=== PATIENT | female | born 1990 | race Caucasian/White ===

== ENCOUNTER → 2019-06-22 13:12 | Outpatient (BNVA) | payer MEDICAID, SELFPAY | PROVIDERS: Visit Provider Obstetrics & Gynecology | DX: Z34.90 Encounter for supervision of normal pregnancy, unspecified, unspecified trimester (principal) | CPT/HCPCS: 81025 ==

== ENCOUNTER 2019-09-15 08:20 | Inpatient (IN) | payer MEDICAID, SELFPAY ==
[2019-09-15] VITALS (31 sets, daily range): BP systolic 105–140; BP diastolic 62–94; PULSE 73–107; RESP 18; TEMP 36.7–36.9; BMI 21.5
--- NOTE | 2019-09-15 08:59 | P.HP_ITS ---
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 Upon presentation she said that she was 35 weeks along. She said she had an initial evaluation that determined her due date, but otherwise she has not had any care during her . She states that she has not had any problems during her . She is unsure if or when her water broke. She has a long history of drug abuse. She told me that she used meth last Saturday. She said that the last time that she had used it prior to that was in March 2018. Of note, when she spoke with Anne Zarate in June she said that the last time she had used meth was 2016 Review of Systems General: Reports: 10 or more systems reviewed and unremarkable except in HPI and below Const: Reports: fatigue; Denies: fever(s) Eyes: Denies: change in vision Card: Denies: chest pain Musc: Reports: back pain Prudencio/Lymph: Denies: easy bruising Medications/Allergies Home Medications Medication Instructions Recorded Confirmed Last Taken Type ibuprofen 800 mg PO TID #30 tab 09/15/19 Unknown Rx prenat.vits,annemarie,[id number] 1 tab PO DAILY #90 tab 09/15/19 06/25/19 09/11/19 20:00 Rx Allergies Allergy/AdvReac Type Severity Reaction Status Date / Time No Known Allergies Allergy Verified 06/25/19 14:26 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 PFSH: Medical History (Updated 09/16/19 @ 00:00 by ) H/O anxiety disorder H/O developmental dysplasia of the hip H/O: substance abuse (2019) 2019 on 09/12/19-- meth Migraine aura without headache Surgical History H/O section (~2011) H/O dilation and curettage (~2006) Family History Grandmother Diabetes Paternal grandmother Maternal grandmother Stroke Maternal grandmother Breast cancer, Onset Age: 55 Maternal grandmother Denies family history of Colon cancer Ovarian cancer Hyperlipidemia Family history of thyroid problem Hypertension Uterine cancer Social History (Updated 09/15/19 @ 09:05 by Enrique Lozoya MD) Smoking and tobacco status: current every day smoker Quit status (tobacco): has quit using tobacco Year quit tobacco: April 2019 Alcohol intake: never Substance/Drug Use: current Substance/Drug use type: Methamphetamine Other substance/drug use details: Last use on Saturday. History of use is not consistent. Marital status: Other Female Reproductive History: Hx Age of Menarche: 13 History History History 4 Term 1 Miscarriages/Ectopic 1 1 Living Children 2 Other History: The patient had an initial visit with women[facility] care clinic, otherwise she has had no care. No labs have been done. She has not seen another provider in any location. Care SABINA Calculator Estimated Delivery Date Method Current WG Current Estimate 11/15/19 LMP (Certain) 32w 1d Specific Issues/Plans * LATE TO CARE * HX OF PTL WITH PTD AT 33 WEEKS * Previous C/S * HX OF HEP C EXPOSURE * HX OF DRUG USE * TOBACCO USE-- stopped at 10 weeks Physical Exam Const: COMMON NORMALS: no acute distress and patient oriented x3 GENERAL APPEARANCE: cooperative, comfortable and well developed HENMT: COMMON NORMALS: normocephalic and moist oral mucous membranes; dentition not normal (Poor dentition noted throughout) HEAD & SCALP: no rmocephalic TEETH & GINGIVA: Yes poor dentition (Almost all teeth with cavities. Most teeth are gone) Chest: COMMONS NORMALS: normal inspection of the chest Resp: COMMON NORMALS: normal respiratory effort and clear to auscultation bilaterally AUSCULTATION: clear to auscultation bilaterally Cardio: COMMON NORMALS: regular rate, regular rhythm, No gallops present (Cardio), No murmurs present (Cardio) and No rub (Cardio) RATE: regular rate RHYTHM: regular rhythm Extremity: COMMON NORMALS: normal to inspection Neuro: COMMON NORMALS: patient oriented x3 and no focal motor deficits Skin: COMMON NORMALS: no rashes or lesions noted GENERAL SKIN EXAM: no rashes or lesions noted Data : 09/15/19 08:50 09/15/19 08:50 A&P Assessment and plan (1) Late care affecting : The patient is going to require assistance on an outpatient basis for rehab. I have talked with her and discussed with her the importance of over coming her drug addiction so that she can be a mother to her children. Status: Resolved Qualifiers: Trimester: second trimester Qualified Code(s): O09.32 - Supervision of with insufficient care, second trimester (2) Exposure to hepatitis C: Status: Acute (3) Tobacco use during : Status: Resolved Qualifiers: Trimester: first trimester Qualified Code(s): O99.331 - Smoking (tobacco) complicating , first trimester (4) Methamphetamine abuse: Status: Acute (5) Drug use affecting : Status: Resolved (6) 32 weeks gestation of : Status: Resolved (7) Spontaneous vaginal delivery: Status: Resolved Attestations Medical Necessity Statement*: The mother was discharged shortly after her child was transferred. I discussed the risks of an early discharge the patient. She accepted those risks and wishes to go regardless. 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
--- NOTE | 2019-09-15 09:11 | PM.DELIVERY ---
Delivery Note: Date of delivery: September 15, 2019 Pre-Delivery Course: The patient went into labor and was on her way to the hospital when she delivered about 2 miles from the hospital. EMS assisted in the clamping and cutting of the cord. The mother and baby were then brought to the hospital for definitive treatment. I was contacted on the phone after the patient had arrived. Delivery: After being contacted regarding the patient, I quickly came to the hospital then assisted with delivery of the placenta which was delivered intact. There was no lacerations noted on the perineum or vagina. The baby was 4 pounds 1 ounce and had an of 7 at about 30 minutes post delivery. No nuchal cord was reported. No meconium was reported. A&P Assessment and plan (1) Late care affecting : Status: Resolved Qualifiers: Trimester: second trimester Qualified Code(s): O09.32 - Supervision of with insufficient care, second trimester (2) Exposure to hepatitis C: Status: Acute (3) Tobacco use during : Status: Resolved Qualifiers: Trimester: first trimester Qualified Code(s): O99.331 - Smoking (tobacco) complicating , first trimester (4) Methamphetamine abuse: Status: Acute (5) Drug use affecting : Status: Resolved (6) 32 weeks gestation of : Status: Resolved (7) Spontaneous vaginal delivery: Status: Resolved Coding Level of Care Code Acute Cook Italian Style Food for Chg Fwd Diagnoses Late care affecting O09.32 Trimester: second trimester Exposure to hepatitis C Z20.5 Tobacco use during O99.331 Trimester: first trimester Methamphetamine abuse F15.10 Drug use affecting O99.320 32 weeks gestation of Z3A.32 Spontaneous vaginal delivery O80
--- NOTE | 2019-09-15 09:46 | PC.NURSE ---
PT HAD IV UPON ARRIVAL TO OB.
[2019-09-15 09:47] LABS: Rubella IgG 96.6 IU/mL (0.0-9.0)
[2019-09-15 09:48] LABS: Rapid Plasma Reagin Syphilis Nonreactive (Nonreactive)
[2019-09-15 10:12] LABS: Basophils % 0.3 %; Eosinophils # 0.1 10^3/uL (0.0-0.8); Eosinophils % 0.5 %; Hematocrit 33.6 % (37.0-47.0); Hemoglobin 10.6 g/dL (11.5-15.3); Lymphocytes # 2.1 10^3/uL (0.8-4.8); Lymphocytes % 14.3 %; Mean Corpuscular HGB Conc 31.5 g/dL (30.0-36.0); Mean Corpuscular Hemoglobin 28.2 pg (28.0-34.0); Mean Corpuscular Volume 89.4 fL (81-99); Mean Platelet Volume 13.6 fL (7.4-10.4); Monocytes # 0.9 10^3/uL (0.2-0.9); Monocytes % 5.8 %; Neutrophils # 11.7 10^3/uL (1.8-7.7); Neutrophils % 78.3 %; Nucleated Red Blood Cells % 0 %; Platelet Count 224 10^3/cmm (130-400); Red Blood Count 3.76 10^6/uL (4.1-5.3); Red Cell Distribution Width 12.8 % (12.1-15.1)
[2019-09-15 10:21] LABS: Amphetamines Screen Urine Positive (Negative); Barbiturates Screen Urine Negative (Negative); Benzodiazepines Screen Urine Negative (Negative); Cocaine Screen Urine Negative (Negative); Hepatitis B Surface Antigen Non-Reactive (Nonreactive); Opiate Screen Urine Negative (Negative); PCP Screen Urine Negative (Negative); THC Screen Urine Negative (Negative)
[2019-09-15 10:33] LABS: Alanine Aminotransferase 13 U/L (0-33); Albumin Level 3.3 g/dL (3.5-5.2); Alkaline Phosphatase 152 IU/L (35-105); Anion Gap 18.9 (5-19); Aspartate Amino Transferase 19 U/L (0-32); Blood Urea Nitrogen 6 mg/dL (6-20); Calcium 8.9 mg/dL (8.5-10.5); Carbon Dioxide 19 mmol/L (22-29); Chloride 101 mmol/L (98-107); Globulin 3.1 g/dL (1.3-4.6); Glomerular Filtration Rate 188.7 mL/min (90-130); Glucose 95 mg/dL (65-115); Osmolality Calculated 276 mOsm/kg (285-295); Potassium 3.9 mmol/L (3.5-5.1); Sodium 135 mmol/L (136-145); Total Bilirubin 0.2 mg/dL (0.15-1.2); Total Protein 6.4 g/dL (6.6-8.7)
[2019-09-15 10:46] LABS: C Reactive Protein 3.7 mg/L (0.0-4.9); HIV 1 & 2 Antibody Non-Reactive (Non-Reactiv); HIV 1 & 2 Antigen Non-Reactive (Non-Reactiv)
[2019-09-15] MEDS: prenatal vitamin Capsule 1 CAP PO (11:10)
[2019-09-15] MEDS: docusate sodium 100 mg Capsule PO (11:10)
[2019-09-15] MEDS: oxytocin 30 UNIT/500 ML BAG 600 UNIT IV (11:14)
[2019-09-15 12:04] LABS: Hepatitis C Virus Antibody Reactive (Nonreactive)
--- NOTE | 2019-09-15 12:16 | PC.NURSE ---
Patient loaded up into the transport team's isolette.
--- NOTE | 2019-09-15 13:54 | PM.OBGYDC ---
Discharge Providers EDUCATIONAL PSYCHOLOGIST Date of Admission: 09/15/19 08:20 Date of Discharge: 09/21/19 Attending Provider at Admission: Enrique Lozoya MD Attending Provider at Discharge: Enrique Lozoya MD Diagnoses at Discharge Discharge Diagnosis (1) Late care affecting : Status: Resolved Qualifiers: Trimester: second trimester Qualified Code(s): O09.32 - Supervision of with insufficient care, second trimester (2) Exposure to hepatitis C: Status: Acute (3) Tobacco use during : Status: Resolved Qualifiers: Trimester: first trimester Qualified Code(s): O99.331 - Smoking (tobacco) complicating , first trimester (4) Methamphetamine abuse: Status: Acute (5) Drug use affecting : Status: Resolved (6) 32 weeks gestation of : Status: Resolved (7) Spontaneous vaginal delivery: Status: Resolved Reason for Visit Reason for Visit: Delivery Hospital Course Hospital Course: The patient is a multigravida female at 32 weeks who presented to the hospital after delivering her baby in route to the hospital. She had received almost no care. After arrival at the hospital. The delivery of the placenta was unremarkable. And her course was also unremarkable. DFS was contacted due to her drug abuse and her lack of care. Her baby was transferred due to its early gestational age. The mother was very anxious to also leave the hospital so that she could see her baby, so she was discharged shortly after her baby was transferred. Information Peripartum Data: Delivery Method: Vaginal Physical Exam Narrative: EXAM NARRATIVE: The patient is alert. She appears comfortable. Her heart has a regular rate and rhythm with no murmurs appreciated. Lungs are clear to auscultation bilaterally. Her fundus is firm and below the umbilicus. Discharge Data Data Completed and Pending: Pending at discharge Category Date Time Status Blood Culture Sta t Lab 09/15/19 09:52 Ordered Chlamydia Trachom atis BAO Stat Lab 09/15/19 08:50 Received Lactic Sepsis W/R eflex Stat Lab 09/15/19 09:52 Ordered Neisseria Gonorrh oeae BAO Stat Lab 09/15/19 08:50 Received [facility] SARS-CoV-2 RNA Routine Lab 09/15/19 09:50 Ordered Retype for Patiet s ABO/Rh Routine Lab 09/15/19 10:46 Ordered Labs from last 24 hours 09/15/19 09/15/19 09/15/19 08:50 08:50 08:50 WBC 15.0 H Corrected WBC RBC 3.76 L Hgb 10.6 L Hct 33.6 L MCV 89.4 MCH 28.2 MCHC 31.5 RDW 12.8 Plt Count 224 MPV 13.6 H Neut % (Auto) 78.3 Lymph % (Auto) 14.3 [place] % (Auto) 5.8 Eos % (Auto) 0.5 Baso % (Auto) 0.3 Neut # (Auto) 11.7 H Lymph # (Auto) 2.1 [place] # (Auto) 0.9 Eos # (Auto) 0.1 Baso # (Auto) 0.0 Nucleated RBC % (a uto) 0 Nucleated RBCs # 0.0 Sodium 135 L Potassium 3.9 Chloride 101 Carbon Dioxide 19 L Anion Gap 18.9 BUN 6 Creatinine 0.4 L GFR Calculation 188.7 H Glucose 95 Calculated Osmolal ity 276 L Calcium 8.9 Total Bilirubin 0.2 AST 19 ALT 13 Alkaline Phosphata se 152 H C-Reactive Protein 3.7 Total Protein 6.4 L Albumin 3.3 L Globulin 3.1 Urine Opiates Scre en Negative Ur Barbiturates Sc reen Negative Ur Phencyclidine S crn Negative Ur Amphetamines Sc reen Positive H U Benzodiazepines Scrn Negative Urine Cocaine Scre en Negative U Marijuana (THC) Screen Negative RPR Hep Bs Antigen Hepatitis C Antibo dy HIV 1&2 Ab & HIV 1 Ag HIV 1&2 Antibody Rubella IgG Antibo dy Blood Type Rho(D) Type Antibody Screen 09/15/19 09/15/19 09/15/19 08:50 08:50 08:50 WBC Cancelled Corrected WBC Cancelled RBC Cancelled Hgb Cancelled Hct Cancelled MCV Cancelled MCH Cancelled MCHC Cancelled RDW Cancelled Plt Count Cancelled MPV Cancelled Neut % (Auto) Lymph % (Auto) [place] % (Auto) Eos % (Auto) Baso % (Auto) Neut # (Auto) Lymph # (Auto) [place] # (Auto) Eos # (Auto) Baso # (Auto) Nucleated RBC % (a uto) Nucleated RBCs # Sodium Potassium Chloride Carbon Dioxide Anion Gap BUN Creatinine GFR Calculation Glucose Calculated Osmolal ity Calcium Total Bilirubin AST ALT Alkaline Phosphata se C-Reactive Protein Total Protein Albumin Globulin Urine Opiates Scre en Ur Barbiturates Sc reen Ur Phencyclidine S crn Ur Amphetamines Sc reen U Benzodiazepines Scrn Urine Cocaine Scre en U Marijuana (THC) Screen RPR Nonreactive Hep Bs Antigen Hepatitis C Antibo dy HIV 1&2 Ab & HIV 1 Ag HIV 1&2 Antibody Rubella IgG Antibo dy 96.6 H Blood Type B Positive Rho(D) Type Positive Antibody Screen Negative 09/15/19 09/15/19 09/15/19 08:50 08:50 08:50 WBC Corrected WBC RBC Hgb Hct MCV MCH MCHC RDW Plt Count MPV Neut % (Auto) Lymph % (Auto) [place] % (Auto) Eos % (Auto) Baso % (Auto) Neut # (Auto) Lymph # (Auto) [place] # (Auto) Eos # (Auto) Baso # (Auto) Nucleated RBC % (a uto) Nucleated RBCs # Sodium Potassium Chloride Carbon Dioxide Anion Gap BUN Creatinine GFR Calculation Glucose Calculated Osmolal ity Calcium Total Bilirubin AST ALT Alkaline Phosphata se C-Reactive Protein Total Protein Albumin Globulin Urine Opiates Scre en Ur Barbiturates Sc reen Ur Phencyclidine S crn Ur Amphetamines Sc reen U Benzodiazepines Scrn Urine Cocaine Scre en U Marijuana (THC) Screen RPR Hep Bs Antigen Non-reactive Hepatitis C Antibo dy Reactive H HIV 1&2 Ab & HIV 1 Ag Non-reactive HIV 1&2 Antibody Non-reactive Rubella IgG Antibo dy Blood Type Rho(D) Type Antibody Screen Vitals: Last Vital Signs Temp 98.4 F 09/15/19 08:52 Pulse 91 09/15/19 13:43 BP 119/78 09/15/19 13:43 Discharge Plan Discharge Patient Disposition: Home, Self-Care Condition: Stable Prescriptions: New ibuprofen 800 mg Tablet 800 mg PO TID Qty: 30 RF: 0 Continued prenat.vits,annemarie,[id number] Tablet 1 tab PO DAILY Qty: 90 RF: 2 Discharge Orders: Discharge Order (Routine); Ordered 09/15/19 Ordered By: Enrique Lozoya Referrals: Enrique Lozoya MD [Physician] - 09/22/19 8:15 am (* Your 1 week check up is with Dr. Lozoya on 09/22/2019 at 8:15am. ) Discharge Diet: Usual diet Discharge Activity: Limit activity as instructed Patient Instructions: Ibuprofen (By mouth), Perineal Care (DC), Your Baby (DC), Expression, Collection and Storage of Breastmilk (DC), How to Hold and Breastfeed Your Baby (DC), and Nipple Soreness (DC), Breast Fullness Versus Breast Engorgement (DC), and Plugged Ducts (DC), How to Tell if Your Baby is Getting Enough Breast Milk (DC), Vaginal Delivery (DC), Bleeding (DC), OB Discharge Report, OB Food/Drug Interaction Guide, Abnormal Bleeding, Depression Discharge Date/Time: 09/15/19 16:05 Discharge Attestations EDUCATIONAL PSYCHOLOGIST Time Spent in Discharge Care*: less than 30 min Coding Level of Care Code 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
== END 2019-09-15 16:05 | disposition home or self-care (01) | DRG 776 ==
PROVIDERS: Family Medicine; Admitting Provider Family Medicine; Visit Provider Family Medicine
DX: Z39.0 Encounter for care and examination of mother immediately after delivery (principal); O99.325 Drug use complicating the puerperium; O98.43 Viral hepatitis complicating the puerperium; O99.335 Smoking (tobacco) complicating the puerperium; F17.210 Nicotine dependence, cigarettes, uncomplicated; F15.10 Other stimulant abuse, uncomplicated; B19.20 Unspecified viral hepatitis C without hepatic coma
CPT/HCPCS: 12345; 36415; 51702; 59409; 80053; 80306; 85025; 86140; 86592; 86762; 86803; 86850; 86900; 87340; 87491; 87591; 87806; 88307; 99211